=== PATIENT | male | born 1975 | race Caucasian/White ===

== ENCOUNTER 2016-11-03 07:27 | Emergency (ER) | payer MEDICARE, OTHER ==
[~2016-11-03] VITALS: Ht 177.8 cm; Wt 72.6 kg
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
--- NOTE | 2016-11-03 07:40 | NUR ---
Jayne moseley in [facility] - 11/03/16 at 0741 by KATIUSKA REPORT GIVEN TO PATRICIA MONTAÑO FOR C.O.C
--- NOTE | 2016-11-03 07:41 | NUR ---
REPORT GIVEN TO PATRICIA MONTAÑO FOR C.O.C
[2016-11-03] MEDS ORDERED: DEXAMETHASONE SOD PHOSPHATE 4 MG/ML VIAL IM ONE (08:30)
[2016-11-03] MEDS ORDERED: DEXAMETHASONE SOD PHOSPHATE 10 MG/ML VIAL ONE (08:35)
[2016-11-03 08:39] VITALS: BP 129/72
--- NOTE | 2016-11-03 08:41 | NUR ---
Patient discharged to home in stable condition. Written and verbal after care instructions given. Patient verbalizes understanding of instruction. ambulatory with steady gait. rr even and unlabored. vss. no further complaints.
== END 2016-11-03 08:41 | disposition home or self-care (01) ==
LOC: ER 07:29
DX: R13.10 Dysphagia, unspecified (principal); M25.78 Osteophyte, vertebrae; F31.9 Bipolar disorder, unspecified; F15.10 Other stimulant abuse, uncomplicated; F20.9 Schizophrenia, unspecified; F17.200 Nicotine dependence, unspecified, uncomplicated; Z88.8 Allergy status to other drugs, medicaments and biological substances
CPT/HCPCS: 70360-TC; A4606; J1100; Z7610